=== PATIENT | female | born 1940 | race Caucasian/White ===

== ENCOUNTER 2018-09-17 13:49 | Emergency (ER) | payer MEDICARE, BC ==
--- OUTSIDE RECORDS SUMMARY | 2018-09-17 14:06 | XMS REPORT | Continuity of Care Document ---
:1940 External Reference #:[id number] Author Name Ludmila Bauer O.D. Address [address] [place] [address] Care Team Providers Name Role Phone Anjali Lynn M.D. Primary Care Physician Unavailable Payers Date Identification Numbers Payment Provider Subscriber Policy Number: [id number] Medicare - [facility] Bernadette Cummins Marie PayID: [id number] [address] [place] [address] Policy Number: [id number] [place] Plan Jace Salazar JR PayID: [id number] [address] [place] [address] Advance Directives Description No Information Available Problems Active Problems Provider Date Nuclear senile cataract Ludmila Bauer O.D. Onset: 07/27/2016 Myopia Ludmila Bauer O.D. Onset: 07/27/2016 Regular astigmatism Ludmila Bauer O.D. Onset: 07/27/2016 Presbyopia Ludmila Bauer O.D. Onset: 07/27/2016 Vitreous degeneration Ludmila Bauer O.D. 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 07/26/2016 0.1-0.3% Solution Vitamin D every day Unknown 1000Unit Tablets Multi Vitamin Daily 2 a week Unknown Tablets Immunizations Description No Information Available Vital Signs Description No Information Available Results Description No Information Available Procedures Date Code Description Status 07/27/2016 33808 Determination Of Refractive State Completed 07/27/2016 62090 Est Patient Comprehensive Exam Completed 07/26/2014 67449 Determination Of Refractive State Completed 07/26/2014 93855 Est Patient Comprehensive Exam Completed 05/15/2013 78019 Est Patient Comprehensive Exam Completed 05/09/2012 88598 Determination Of Refractive State Completed 05/09/2012 37861 Est Patient Comprehensive Exam Completed 05/05/2011 69556 Est Patient Comprehensive Exam Completed 02/03/2009 54160 Determination Of Refractive State Completed 02/03/2009 19139 Est Patient Comprehensive Exam Completed 01/04/2007 25741 Determination Of Refractive State Completed 01/04/2007 09445 Est Patient Comprehensive Exam Completed 05/12/2004 14684 Determination Of Refractive State Completed 05/12/2004 00478 Est Patient Comprehensive Exam Completed Encounters Description No Information Available Plan of Treatment 08/24/2018 - Ludmila Bauer O.D.H25.13 Age-related nuclear cataract, bilateralComments:Smoking can increase the risk of developing or worsening any eye related disease, as well as affect your overall health. If you are a smoker , we strongly recommend that you quit.If you are not a smoker, we strongly recommend that you do not start. You have nuclear sclerosis, which is hardening of your natural lens. This is normal as a person ages.Follow up:2 years You can expect to have your eyes dilated at your next visit. If Dr. Bauer orders any additional testing, it may require extra time. We recommend that you bring sunglasses, as dilation drops often make you light sensitive until they wear off. We always recommend you bring someone to drive youhome if you are uncomfortable driving with your eyes dilated. If you have any questions before your next visit, feel free to call our office at .[phone] Vitreous degeneration, bilateralComments:You have a Posterior Vitreous Detachment. If you have any changes in your floaters or flashing lights, please contact this office.H52.13 Myopia, bilateralComments:You have Myopia, or near sightedness. I have given you a prescription for glasses.H52.223 Regular astigmatism, bilateralComments:Astigmatism is a common vision condition that happens when a person's cornea is not symmetrical. Dr. Bauer has given you a prescription to correct for this.H52.4 PresbyopiaComments:You have presbyopia. This is when the lens in your eye loses the ability to change focus, and happens as we age. A pair of reading glasses will help you see up close.
[2018-09-17 14:13] VITALS: BP 126/64
[2018-09-17] MEDS ORDERED: DOXYcycline CAP(*) 100 MG PO ONE (14:20)
[2018-09-17] MEDS ORDERED: Ondansetron ODT TAB* 4 MG PO ONE (14:21)
--- NOTE | 2018-09-17 14:24 | UC ---
Skin Complaint HPI - HPI Summary HPI Summary: itch/scab on back for a few days---but today she realized she had a tick on her- --removed prior to arrival - History of Current Complaint Chief Complaint: UCSkin Time Seen by Provider: 09/17/18 14:00 Stated Complaint: TICK Hx Obtained From: Patient ?: No Onset/Duration: Sudden Onset, Lasting Days Timing: Constant Pain Intensity: 0 Pain Scale Used: 0-10 Numeric Location: Discrete Aggravating Factor(s): Nothing Alleviating Factor(s): Nothing Related History: Insect Bite/Sting - Allergy/Home Medications Allergies/Adverse Reactions: Allergies Allergy/AdvReac Type Severity Reaction Status Date / Time No Known Allergies Allergy Verified 09/17/18 14:13 Home Medications: Home Medications NK [No Home Medications Reported] 09/17/18 [History Confirmed 09/17/18] PMH/Surg Hx/FS Hx/Imm Hx Previously Healthy: Yes - Surgical History Surgical History: None - Family History Known Family History: Positive: None - Social History Occupation: Retired Lives: With Family Alcohol Use: Occasionally Substance Use Type: None Smoking Status (MU): Never Smoked Tobacco Review of Systems All Other Systems Reviewed And Are Negative: Yes Constitutional: Positive: Negative Skin: Positive: Other - erythema at site of tick Eyes: Positive: Negative ENT: Positive: Negative Respiratory: Positive: Negative Cardiovascular: Positive: Negative Gastrointestinal: Positive: Negative Genitourinary: Positive: Negative Motor: Positive: Negative Neurovascular: Positive: Negative Musculoskeletal: Positive: Negative Neurological: Positive: Negative Psychological: Positive: Negative Is Patient Immunocompromised?: No Physical Exam Triage Information Reviewed: Yes Appearance: Well-Appearing, No Pain Distress, Well-Nourished Vital Signs: Initial Vital Signs Temp 98.5 F 09/17/18 14:10 Pulse 74 09/17/18 14:10 Resp 18 09/17/18 14:10 BP 126/64 09/17/18 14:10 Pulse Ox 99 09/17/18 14:10 Vital Signs Reviewed: Yes Eye Exam: Normal Eyes: Positive: Conjunctiva Clear ENT Exam: Normal ENT: Positive: Normal ENT inspection, Hearing grossly normal. Negative: Trismus , Muffled voice, Hoarse voice Dental Exam: Normal Neck exam: Normal Neck: Positive: Supple, Nontender Respiratory Exam: Normal Respiratory: Positive: Chest non-tender, No respiratory distress, No accessory muscle use Cardiovascular Exam: Normal Cardiovascular: Positive: RRR, Pulses Normal, Brisk Capillary Refill Musculoskeletal Exam: Normal Musculoskeletal: Positive: Strength Intact, ROM Intact, No Edema Neurological Exam: Normal Neurological: Positive: Alert, Muscle Tone Normal Psychological Exam: Normal Skin: Positive: Other - erythema at site of tick bite Course/Dx - Course Course Of Treatment: Doxycycline times one dose now, education regarding s/s of lyme and tick bite- follow with pcp prn - Diagnoses Provider Diagnosis: Tick bite of back, Risk of exposure to Lyme disease Discharge - Sign-Out/Discharge Documenting (check all that apply): Patient Departure All imaging exams completed and their final reports reviewed: No Studies - Discharge Plan Condition: Stable Disposition: HOME Patient Education Materials: Lyme Disease (ED), Tick Bite (ED) Referrals: Anjali Lynn MD [Primary Care Provider] - If Needed - Billing Disposition and Condition Condition: STABLE Disposition: Home
== END 2018-09-17 14:32 | disposition home or self-care (01) ==
LOC: UCEAST 13:49
DX: T63.481A Toxic effect of venom of other arthropod, accidental (unintentional), initial encounter (principal); Y92.9 Unspecified place or not applicable
CPT/HCPCS: 99202; A9270-GY; G0463

== ENCOUNTER 2021-09-15 08:10 | Observation (INO) ==
[~2021-09-15 08:10] MED LIST: Buffered Lidocaine 1% SYRIN 1 ml INTRADERM ONE; Lactated Ringers 1000 ml BAG 1,000 ML IV SCH; Naloxone 0.4 mg VIAL 0.4 mg/ml 1 ml VIAL IV PRN; Ondansetron 4 mg VIAL 2 MG/ML 2 ml VIAL IV PRN; fentaNYL 100 mcg/2 ml 50 MCG/ML VIAL IV PRN
[2021-09-15] MEDS ORDERED: ceFAZolin 2 GM in NS PREMIX 0 GM/0 ML BAG IVPB ONE (08:26)
[2021-09-15] MEDS ORDERED: Propofol 10 MG/ML 20 ML BTL ONE ×3 (08:29→12:36)
[2021-09-15] MEDS ORDERED: Ketamine HCL 50 mg/ml 10 ml VIAL (500 MG) ONE (08:30)
[2021-09-15 08:51] LABS: INR 1.1 (0.86-1.15)
[2021-09-15] MEDS ORDERED: Dexamethasone IV 4 MG/ML VIAL 1 ml VIAL ONE (09:12)
[2021-09-15] MEDS ORDERED: Lidocaine 1% MPF 5 ML VIAL ONE (09:36)
[2021-09-15] MEDS ORDERED: Bupivacaine 0.5% SDV PF 30ML VIAL ONE (09:36)
[2021-09-15] MEDS ORDERED: ROPIVACAINE 5 MG/ML 30 ML BTL (0.5%) ONE (10:33)
[2021-09-15] MEDS ORDERED: fentaNYL 100 mcg/2 ml 50 MCG/ML VIAL ONE (10:52)
[2021-09-15] MEDS ORDERED: Ondansetron 4 mg VIAL 2 MG/ML 2 ml VIAL ONE (11:44)
[2021-09-15] MEDS ORDERED: Acetaminophen IV 1 GM/100ML 100 ML IV ONE (11:44)
[2021-09-15] MEDS ORDERED: Lactulose 30 ml UDC PO PRN (11:47)
[2021-09-15] MEDS ORDERED: Magnesium Hydroxide LIQ 30 ML UDC PO PRN (11:47)
[2021-09-15] MEDS ORDERED: Morphine 2 MG/ML SYRINGE IV PRN (11:47)
[2021-09-15] MEDS ORDERED: Ondansetron ODT 4 mg TAB 4 MG TAB PO PRN (11:47)
[2021-09-15] MEDS ORDERED: Ondansetron 4 mg VIAL 2 MG/ML 2 ml VIAL IV PRN (11:47)
[2021-09-15] MEDS ORDERED: Lactated Ringers 1000 ml BAG 1,000 ML IV SCH (12:00)
[2021-09-15] MEDS: ceFAZolin 1 GM ADVAN 1 GM in NS 0.9% 50 ML 50 ML IVPB SCH (19:26)
[2021-09-15] MEDS: Magnesium Hydroxide LIQ 30 ML UDC PO SCH (21:02)
[2021-09-16] MEDS: ceFAZolin 1 GM ADVAN 1 GM in NS 0.9% 50 ML 50 ML IVPB SCH ×2 (03:28→11:04)
[2021-09-16 06:42] LABS: Hematocrit 33 % (35-47); Hemoglobin 11.1 g/dL (12.0-16.0); Mean Platelet Volume 7.9 fL (7.4-10.4); Platelet Count 158 10^3/uL (150-450)
[2021-09-16 07:12] LABS: Calcium 8.4 mg/dL (8.6-10.3); Potassium 4.4 mmol/L (3.5-5.0); eGFR CKD-EPI 90.2 (>60)
[2021-09-16 07:26] VITALS: BP 98/84
[2021-09-16] MEDS: Magnesium Hydroxide LIQ 30 ML UDC PO SCH (08:04)
[2021-09-16] MEDS ORDERED: Vitamin THERAPEUTIC TAB PO SCH (09:00)
== END 2021-09-16 13:45 | disposition home or self-care (01) ==
LOC: OR 08:10 → SSU 08:10
PROVIDERS: ADMIT Orthopaedic Surgery Adult Reconstructive Orthopaedic Surgery; ATTEND Orthopaedic Surgery Adult Reconstructive Orthopaedic Surgery